=== PATIENT | female | born 1990 | race Caucasian/White ===

== ENCOUNTER 2020-07-05 09:49 | Outpatient (REF) | payer OTHER, SELFPAY | END 2020-07-05 09:50 | disposition home or self-care (01) | LOC: HO.HAP 09:49 | PROVIDERS: PCP Internal Medicine; Visit Provider Internal Medicine | DX: Z46.1 Encounter for fitting and adjustment of hearing aid (principal) | CPT/HCPCS: V5011; V5020; V5160; V5261; V5264; V5266 ==

== ENCOUNTER 2020-07-23 12:16 | Outpatient (REF) | payer SELFPAY | END 2020-07-23 12:17 | disposition home or self-care (01) | LOC: HO.HAP 12:16 | PROVIDERS: PCP Internal Medicine; Referring Provider Internal Medicine; Visit Provider Internal Medicine | DX: Z13.89 Encounter for screening for other disorder (principal) | CPT/HCPCS: 92700 ==

== ENCOUNTER 2020-12-05 12:26 | Outpatient (REF) | payer SELFPAY | END 2020-12-05 12:27 | disposition home or self-care (01) | LOC: HO.HAP 12:26 | PROVIDERS: Visit Provider Internal Medicine | DX: Z13.89 Encounter for screening for other disorder (principal) ==

== ENCOUNTER 2021-09-29 10:17 | Outpatient (REF) | payer SELFPAY | END 2021-09-29 10:18 | disposition home or self-care (01) | LOC: HO.HAP 10:17 | PROVIDERS: Visit Provider Internal Medicine | DX: Z13.89 Encounter for screening for other disorder (principal) ==

== ENCOUNTER 2022-08-03 14:07 | Outpatient (REF) | payer BC, SELFPAY | END 2022-08-03 14:08 | disposition home or self-care (01) | LOC: HO.SH 14:07 | PROVIDERS: PCP Nurse Practitioner Primary Care; Visit Provider Nurse Practitioner Primary Care | DX: Z01.118 Encounter for examination of ears and hearing with other abnormal findings (principal); H90.3 Sensorineural hearing loss, bilateral | CPT/HCPCS: 92552; 92556 ==

== ENCOUNTER 2022-08-28 08:03 | Outpatient (REF) | payer SELFPAY | END 2022-08-28 08:04 | disposition home or self-care (01) | LOC: HO.HAP 08:03 | PROVIDERS: Visit Provider Nurse Practitioner Primary Care | DX: Z13.89 Encounter for screening for other disorder (principal) ==

== ENCOUNTER 2023-09-08 13:07 | Outpatient (REF) | payer SELFPAY ==
--- NOTE | 2023-09-08 13:41 | MHC.AU.HA3 ---
Hearing Instrument Follow-Up- Binaural Date of Visit: 09/08/23 Right Ear: Francis, Model, Color, Serial Number: Kalyn Britton [id number] SN: [id number] Color: Sand Beige Orthopedic Physical Therapist Repair Warranty: 09/17/2023 Orthopedic Physical Therapist Loss and Damage Warranty: 09/17/2023 [facility] Service Plan: 07/05/2021 Battery Size: 13 Banner Painter/Slim Tube: 0M Earmold/Dome/CShell/SlimTip:Phonak SlimTip SN: [id number] Mayte: 12/09/2020 Type of Wax Guard: CeruStop on SlimTip (broken); CeruShield on bi report developer Dispensed By: [facility] Date of Fittin07/05/2020 Left Ear: Francis, , Color, Serial Number: Kalyn Britton [id number] SN: [id number] Color: Sand Beige Orthopedic Physical Therapist Repair Warranty: 09/17/2023 Orthopedic Physical Therapist Loss and Damage Warranty: 09/17/2023 [facility] Service Plan: 07/05/2021 Battery Size: 13 Banner Painter/Slim Tube: 0M Earmold/Dome/CShell/SlimTip: Phonak SlimTip SN: [id number] Mayte: 12/09/2020 Type of Wax Guard: CeruStop on SlimTip (broken); CeruShield on bi report developer Dispensed By: [facility] Date of Fittin07/05/2020 Follow-Up Summary: Kaelyn reported her right hearing aid is . Upon inspection, bi report developer broken. Cleaned hearing aids and ear molds. Difficulty fully cleaning cavity of ear molds. Vacuumed microphones. Ran through dehumidifier. Replaced both left and right receivers as hearing aids still under senior vice president & general counsel warranty until 09/17/2023. A listening check demonstrated hearing aids amplifying clearly. Both slim tips missing casket to hold in CeruStop. Recommended new slim tips - quoted $130.00. Kaelyn is not ready to pursue new ear molds at this time and will continue to use ear molds without CeruStop. Advised CeruShield on bi report developer can be changed, if needed, so bi report developer is still protected. Paid $50.00 for in-house repair. Recommendations: Hearing instrument follow-up or maintenance as needed. Please contact our clinic with any questions or concerns. Diagnosis Code(s): Primary Diagnosis: H90.3 Bilateral Sensorineural Hearing Loss Signature: Provider: Xavi Rao, [facility]
== END 2023-09-08 13:08 | disposition home or self-care (01) ==
LOC: HO.HAP 13:07
PROVIDERS: Visit Provider Nurse Practitioner Primary Care
DX: Z46.1 Encounter for fitting and adjustment of hearing aid (principal); H90.3 Sensorineural hearing loss, bilateral
CPT/HCPCS: 92593

== ENCOUNTER 2025-04-09 14:25 | Outpatient (REF) | payer SELFPAY ==
--- NOTE | 2025-04-09 15:06 | MHC.AU.HA3 ---
Hearing Instrument Follow-Up- Binaural Date of Visit: 04/09/25 Right Ear: Francis, Model, Color, Serial Number: Kalyn Britton [id number] SN: [id number] Color: Sand Beige Extraction Operator Repair Warranty: 09/17/2023 Extraction Operator Loss and Damage Warranty: 09/17/2023 [facility] Service Plan: 07/05/2021 Battery Size: 13 Web Application Dev Specialist/Slim Tube: 0M Earmold/Dome/CShell/SlimTip:Phonak SlimTip SN: [id number] Mayte: 12/09/2020 Type of Wax Guard: CeruStop Dispensed By: [facility] Date of Fittin07/05/2020 Left Ear: Francis, Model, Color, Serial Number: Kalyn Britton [id number] SN: [id number] Color: Sand Beige Extraction Operator Repair Warranty: 09/17/2023 Extraction Operator Loss and Damage Warranty: 09/17/2023 [facility] Service Plan: 07/05/2021 Battery Size: 13 Web Application Dev Specialist/Slim Tube: 0M Earmold/Dome/CShell/SlimTip: Phonak SlimTip SN: [id number] Mayte: 12/09/2020 Type of Wax Guard: CeruStop on SlimTip (broken); CeruShield on radiology therapist Dispensed By: [facility] Date of Fittin07/05/2020 Follow-Up Summary: Reports right aid weak. Slim tips missing wax guards, as previously noted. Wax guards on receivers clogged- replaced. Cleaned aids. Brushed debris from microphones. Listening check positive left. No sound from right. Replaced radiology therapist right. Listening check positive. Kaelyn reports improvement with new radiology therapist. Recommendations: Recommendations: Hearing instrument follow-up or maintenance as needed. Diagnosis Code(s): Primary Diagnosis: H90.3 Bilateral Sensorineural Hearing Loss Signature: Provider: Xavi Espinoza, CCC-A
--- OUTSIDE RECORDS SUMMARY | 2025-04-09 15:10 | XMS_ITS | Patient Health Record ---
[facility] Address [address] [address] Care Team Providers Care Wreath And Garland Maker Hand Name Role Phone Dominic Israel Primary Care Provider Radha Werner Unavailable [phone] Allergies Allergen (clinical drug ingredient) Drug/Non Drug Allergy documented on EMR Reaction Allergy Type Onset Date Status ciprofloxacin Cipro hives Drug Allergy Act mary topiramate Topamax kidney stones Drug Allergy Ac tive levaquin hives Drug Allergy Active Reason For Referral No Information Medications Medication SIG (Take, Route, Fr equency, Duration) Notes Start Date End Date Status Xanax 0.5 MG Orally PRN Active PROzac 40 MG Orally Active Zofran 4 MG Orally PRN Active Mirena control Active Social History Tobacco Use: Social History Observation Description Date Details (start date - stop date) Never Smoker NA - NA Tobacco Use/Smoking Question Answer Notes Are you a: nonsmoker Additional Findings: Tobacco Non-User Current no n-smoker Alcohol Screen Question Answer Notes Did you have a drink contain ing alcohol in the past year? Yes How often did you have a dri nk containing alcohol in the past year? Monthly or less (1 point) Points 1 Interpretation Negative Plan Of Treatment No Information Insurance Providers Payer Name Payer Address Payer Phone Subscriber Number Group Number Insured Name Patient Relationship to Insured Coverage Start Date Coverage End Date [facility] [address] [place] [address] [id number] Kaelyn Yusuf Self - patient is the insured Medical (General) History Medical History History ICD Code Anxiety Broken bones Depression Headaches Psychiatric disorder Reflux ( GERD) chronic sinusitis Warts Chicken pox Surgical History Surgery Date(Month/Year) right shoulder surgery 2012 kidney stones removed 2014
== END 2025-04-09 14:26 | disposition home or self-care (01) ==
LOC: HO.HAP 14:25
PROVIDERS: Visit Provider Nurse Practitioner Primary Care
DX: Z46.1 Encounter for fitting and adjustment of hearing aid (principal); H90.3 Sensorineural hearing loss, bilateral
CPT/HCPCS: V5299